=== PATIENT | male | born 1980 | race Caucasian/White ===

== ENCOUNTER 2018-01-13 12:55 | Emergency (ER) | payer BC ==
[~2018-01-13] VITALS: Ht 175.3 cm; Wt 72.6 kg
[2018-01-13] MEDS: chlordiazePOXIDE HCL 25 MG CAP PO ONE (14:20)
[2018-01-13 14:45] LABS: Basophils # (auto) 0 uL; Basophils % (auto) 0.4 % (0.0-2.0); Eosinophils # (auto) 0 uL; Eosinophils % (auto) 0.4 % (0.0-7.0); Hematocrit 47.4 % (41.0-53.0); Lymphocytes # (auto) 1.8 uL; Lymphocytes % (auto) 19.3 % (10.0-50.0); Mean Corpuscular Hemoglobin 32.3 pg (28.0-32.0); Mean Corpuscular Hgb Conc. 33.8 g/dL (32.0-36.0); Mean Corpuscular Volume 95.6 fL (80.0-100.0); Monocytes # (auto) 0.7 uL; Monocytes % (auto) 8.1 % (0.0-12.0); Neutrophils # (auto) 6.5 uL; Neutrophils % (auto) 71.8 % (37.0-80.0); Nucleated Red Blood Cells % 0.1 %; Platelet Count (auto) 226 10^3/uL (140-450); Red Blood Cells 4.95 10^6/uL (4.5-5.90); Red Cell Distribution Width 13.3 % (11.8-14.3); White Blood Cell 9.1 10^3/uL (4.4-10.8)
[2018-01-13 15:03] LABS: Alanine Aminotransferase 39 U/L (16-61); Anion Gap 10 (5-15); Aspartate Aminotransferase 34 U/L (15-37); BUN/Creatinine Ratio 6.9; Blood Alcohol < 3.0 mg/dL (0-5); Blood Urea Nitrogen 7 mg/dL (7-18); Carbon Dioxide 26 mmol/L (21-32); Chloride 107 mmol/L (98-107); GFR African American 106 mL/min; GFR Non-African American 87 mL/min; Glucose 93 mg/dL (74-106); Potassium 4.1 mmol/L (3.5-5.1); Sodium 143 mmol/L (136-145)
[2018-01-13 15:05] LABS: Alkaline Phosphatase 71 U/L (45-117); Bilirubin, Total 0.3 mg/dL (0.2-1.0); Total Protein 7.5 g/dL (6.4-8.2)
[2018-01-13 15:22] LABS: Urine WBC None Seen /hpf (0 - 3)
[2018-01-13 15:43] LABS: Urine Bacteria NONE SEEN /hpf (None Seen); Urine Blood Negative /uL (Negative); Urine Specific Gravity 1.007 (1.001-1.035)
[2018-01-13 16:14] LABS: Amphetamine Screen, Urine NEGATIVE (NEGATIVE); Barbiturate Scree,Urine NEGATIVE (NEGATIVE); Benzodiazephine Screen, Urine NEGATIVE (NEGATIVE); Cannabinoid Screen, Urine NEGATIVE (NEGATIVE); Cocaine Screen, Urine NEGATIVE (NEGATIVE); Opiate Scree,Urine NEGATIVE (NEGATIVE); Phencyclidine Screen, Urine NEGATIVE (NEGATIVE)
[2018-01-13 16:29] VITALS: BP 140/86
== END 2018-01-13 16:31 | disposition home or self-care (01) ==
LOC: ER 12:55
DX: F10.230 Alcohol dependence with withdrawal, uncomplicated (principal); F17.210 Nicotine dependence, cigarettes, uncomplicated
CPT/HCPCS: 36415; 80053; 80307; 80320; 80329; 81001; 85025; 93005

== ENCOUNTER → 2019-12-22 | Day surgery (SDC) | payer MEDICAID ==
[~2019-12-22] MED LIST: BUPIVACAINE 0.25% INJ 50ML VIAL ONE; CEPH-37 PO; DOCU-94 PO; HEPARIN SODIUM (PORCINE) 5000 UNITS/ML 1ML VIAL ONE; HYDR-392 PO; LIDOCAINE W/ EPINEPHRINE 1% 20ML VIAL ONE; MEPERIDINE HCL (25 MG/ML) 1ML VIAL ONE; MIDAZOLAM HCL 1MG/1ML-2 ML VIAL ONE; ONDANSETRON HCL 4 MG/2 ML VIAL ONE; PROPOFOL 10 MG/ML 20 ML IV ONE; ROCURONIUM 10MG/ML 10ML VIAL IV ONE; SODIUM CHLORIDE LOCK 10 ML ONE; SUCCINYLCHOLINE CHLORIDE 20 MG/ML 10ML VIAL IV ONE; ceFAZolin 1GM VL IV ONE; ceFAZolin 1GM/50ML 100 ML IV ONE; fentaNYL CITRATE 100 MCG/2 ML VL ONE
[2019-12-22 10:41] VITALS: BP 133/76
== END | disposition home or self-care (01) ==
LOC: SUR 08:11
PROVIDERS: ATTEND Surgery
DX: D17.0 Benign lipomatous neoplasm of skin and subcutaneous tissue of head, face and neck (principal); Z98.890 Other specified postprocedural states
CPT/HCPCS: 21552; 82962; 88304; J0330; J0690; J1644; J2175; J2250; J2405; J2704; J3010; J3490

== ENCOUNTER 2020-02-02 08:08 | Day surgery (SDC) | payer MEDICAID ==
[~2020-02-02] VITALS: Ht 175.3 cm; Wt 83.9 kg
[2020-02-02] MEDS ORDERED: HEPARIN SODIUM (PORCINE) 5000 UNITS/ML 1ML VIAL SC ONE (08:52)
[2020-02-02] MEDS ORDERED: fentaNYL CITRATE 100 MCG/2 ML VL ONE (10:07)
[2020-02-02] MEDS ORDERED: MEPERIDINE HCL (25 MG/ML) 1ML VIAL ONE (10:07)
[2020-02-02] MEDS ORDERED: SODIUM CHLORIDE LOCK 10 ML ONE (10:08)
[2020-02-02] MEDS ORDERED: PROPOFOL 10 MG/ML 20 ML IV ONE (10:08)
[2020-02-02] MEDS ORDERED: ONDANSETRON HCL 4 MG/2 ML VIAL ONE (10:08)
[2020-02-02] MEDS ORDERED: MIDAZOLAM HCL 1MG/1ML-2 ML VIAL ONE (10:08)
[2020-02-02] MEDS ORDERED: BUPIVACAINE 0.25% INJ 50ML VIAL ONE (10:33)
[2020-02-02] MEDS ORDERED: LIDOCAINE W/ EPINEPHRINE 1 % INJ 30ML ONE (10:33)
[2020-02-02] MEDS ORDERED: METOCLOPRAMIDE HCL 5MG/ml INJ 2ml VIAL IV PRN (10:45)
[2020-02-02] MEDS ORDERED: KETOROLAC TROMETH 30 MG/ML 1ML VIAL IV ONE (10:45)
[2020-02-02] MEDS ORDERED: fentaNYL CITRATE 100 MCG/2 ML VL IV PRN (10:45)
[2020-02-02] MEDS ORDERED: MORPHINE SULFATE 4 MG/ML SYR/VIAL IV PRN (10:45)
[2020-02-02] MEDS ORDERED: HYDROmorphone HCL 2 MG/ML VL IV PRN (10:45)
[2020-02-02] MEDS ORDERED: HYDR-4833 GT (11:30)
[2020-02-02 12:03] VITALS: BP 112/70
== END 2020-02-02 12:15 | disposition home or self-care (01) ==
LOC: SUR 08:08
PROVIDERS: ATTEND Surgery
DX: R19.09 Other intra-abdominal and pelvic swelling, mass and lump (principal); D17.1 Benign lipomatous neoplasm of skin and subcutaneous tissue of trunk; I26.99 Other pulmonary embolism without acute cor pulmonale; Z86.718 Personal history of other venous thrombosis and embolism; Z68.28 Body mass index [BMI] 28.0-28.9, adult; Z98.890 Other specified postprocedural states; Z79.899 Other long term (current) drug therapy; Z11.59 Encounter for screening for other viral diseases
CPT/HCPCS: 22902; 88302; J1644; J2001; J2175; J2250; J2405; J2704; J3010; J3490; U0003

== ENCOUNTER 2020-03-06 12:55 | Emergency (ER) | payer MEDICAID ==
[~2020-03-06] VITALS: Ht 175.3 cm; Wt 83.9 kg
[~2020-03-06 12:55] MED LIST changes: -BUPIVACAINE 0.25% INJ 50ML VIAL ONE; -CEPH-37 PO; -DOCU-94 PO; -HEPARIN SODIUM (PORCINE) 5000 UNITS/ML 1ML VIAL ONE; -HYDR-392 PO; +HYDR-4833 GT; -LIDOCAINE W/ EPINEPHRINE 1% 20ML VIAL ONE; -MEPERIDINE HCL (25 MG/ML) 1ML VIAL ONE; -MIDAZOLAM HCL 1MG/1ML-2 ML VIAL ONE; -ONDANSETRON HCL 4 MG/2 ML VIAL ONE; -PROPOFOL 10 MG/ML 20 ML IV ONE; -ROCURONIUM 10MG/ML 10ML VIAL IV ONE; -SODIUM CHLORIDE LOCK 10 ML ONE; -SUCCINYLCHOLINE CHLORIDE 20 MG/ML 10ML VIAL IV ONE; -ceFAZolin 1GM VL IV ONE; -ceFAZolin 1GM/50ML 100 ML IV ONE; -fentaNYL CITRATE 100 MCG/2 ML VL ONE
[2020-03-06 15:36] VITALS: BP 129/88
[2020-03-06] MEDS ORDERED: IBUPROFEN 800 MG TAB PO ONE (16:15)
[2020-03-06] MEDS ORDERED: METHOCARBAMOL 500 MG TAB PO ONE (16:15)
[2020-03-06] MEDS ORDERED: LIDOCAINE 1% HCL (LOCAL ANESTH.) INJ 20ML MDV ONE (16:49)
== END 2020-03-06 17:54 | disposition home or self-care (01) ==
LOC: ER 12:55
DX: S01.81XA Laceration without foreign body of other part of head, initial encounter (principal); F17.210 Nicotine dependence, cigarettes, uncomplicated; V29.9XXA Motorcycle rider (driver) (passenger) injured in unspecified traffic accident, initial encounter; Y93.I9 Activity, other involving external motion; Y92.89 Other specified places as the place of occurrence of the external cause; Y99.8 Other external cause status
CPT/HCPCS: 12013; 70486; 73030; 99284; J2001

== ENCOUNTER → 2025-04-28 | Day surgery (SDC) | payer MEDICAID ==
[~2025-04-28] VITALS: Ht 172.7 cm; Wt 84.4 kg
[~2025-04-28] MED LIST changes: +BUPIVACAINE 0.25% INJ 50ML VIAL ONE; +CRAN125T PO; -HYDR-4833 GT; +KETOROLAC TROMETH 30 MG/ML 1ML VIAL ONE; +MILK140C PO; +MULT-1018 PO; +OMEG100062 PO; +OMEG1400 PO; +ROPIVACAINE 0.5% (5MG/ML) 20ML AMPULE IJ ONE; +TRANEXAMIC ACID 20 ML ONE; +VANCOMYCIN HCL 1000 MG VL ONE; +[UNRECOGNIZED DRUG - CODE] PO
== END | disposition home or self-care (01) ==
LOC: SUR 08:27
PROVIDERS: ATTEND Orthopaedic Surgery
DX: M16.11 Unilateral primary osteoarthritis, right hip (principal); Z53.8 Procedure and treatment not carried out for other reasons; M87.051 Idiopathic aseptic necrosis of right femur; M16.7 Other unilateral secondary osteoarthritis of hip
CPT/HCPCS: 86850; 86900; 86901; A4565; J1885; J3490

== ENCOUNTER 2025-05-04 09:30 | Inpatient (IN) | payer MEDICAID ==
[2025-04-30 08:45] LABS: Hematocrit 44.9 % (41.0-53.0); Hemoglobin 15.1 g/dL (13.5-17.5); Mean Corpuscular Hemoglobin 27.6 pg (28.0-32.0); Mean Corpuscular Volume 81.7 fL (80.0-100.0); Nucleated Red Blood Cells % 0.1 %
[2025-04-30 08:50] LABS: Urine Protein, UAD Negative (Negative)
[2025-04-30 09:06] LABS: INR 1.02 (0.9-1.15); Partial Thromboplastin Time 26.9 SEC (24.5-34.5); Prothrombin Time 10.8 sec (9.3-11.8)
[2025-04-30 09:07] LABS: Alanine Aminotransferase 25 U/L (7-40); Albumin 4.3 g/dL (3.2-4.8); Alkaline Phosphatase 76 U/L (46-116); Anion Gap 10 (5-15); BUN/Creatinine Ratio 15.9 (10.0-20.0); Bilirubin, Total 0.7 mg/dL (0.2-1.0); Blood Urea Nitrogen 20 mg/dL (9-23); Calcium 9.4 mg/dL (8.7-10.4); Carbon Dioxide 27 mmol/L (20-31); Chloride 107 mmol/L (98-107); Glucose 88 mg/dL (74-106); Potassium 4.1 mmol/L (3.5-5.1); Sodium 144 mmol/L (136-145); Total Protein 6.7 g/dL (5.7-8.2)
[~2025-05-04] VITALS: Ht 172.7 cm; Wt 57.0 kg
[~2025-05-04 09:30] MED LIST changes: -BUPIVACAINE 0.25% INJ 50ML VIAL ONE; -KETOROLAC TROMETH 30 MG/ML 1ML VIAL ONE; -ROPIVACAINE 0.5% (5MG/ML) 20ML AMPULE IJ ONE; -TRANEXAMIC ACID 20 ML ONE; -VANCOMYCIN HCL 1000 MG VL ONE
[2025-05-04] MEDS ORDERED: GLYCOPYRROLATE 0.2 MG/ML 1ML VIAL ONE (10:14)
[2025-05-04] MEDS ORDERED: PROPOFOL 10 MG/ML 20 ML IV ONE ×3 (10:14→12:24)
[2025-05-04] MEDS ORDERED: ONDANSETRON HCL 4 MG/2 ML VIAL ONE (10:14)
[2025-05-04] MEDS ORDERED: LIDOCAINE 1% INJ PF 5ML AMP ONE (10:14)
[2025-05-04] MEDS ORDERED: KETOROLAC TROMETH 30 MG/ML 1ML VIAL ONE (10:14)
[2025-05-04] MEDS: CELECOXIB 100 MG CAP ONE (10:19)
[2025-05-04] MEDS: ACETAMINOPHEN IV 100 ML IV ONE (10:19)
[2025-05-04] MEDS: GABAPENTIN 300 MG CAP ONE (10:19)
[2025-05-04] MEDS: GABAPENTIN 300 MG CAP PO ONE (10:30)
[2025-05-04] MEDS: ACETAMINOPHEN IV 1000 MG/100ML (10MG/ML) IV ONE (10:30)
[2025-05-04] MEDS: CELECOXIB 100 MG CAP PO ONE (10:30)
[2025-05-04] MEDS: BUPIVACAINE 0.25% INJ 50ML VIAL ONE (10:33)
[2025-05-04] MEDS ORDERED: BUPIVACAINE/DEXTROSE MPF 0.75% 2 ML AMP IT ONE (10:34)
[2025-05-04] MEDS: ceFAZolin 2 GM/D5W50ml 50 ML IV ONE (10:45)
[2025-05-04] MEDS: CEFEPIME 1GM/50ML 50 ML IV ONE (10:45)
[2025-05-04] MEDS: VANCOMYCIN HCL 1000 MG VL ONE (11:11)
[2025-05-04] MEDS: TRANEXAMIC ACID 20 ML ONE (11:11)
--- NOTE | 2025-05-04 12:39 | DVHOP2 ---
Operative Report - 2 Report Details Date: 05/04/25 Preop Diagnosis: Right hip avascular necrosis Postop Diagnosis: Right hip avascular necrosis Surgeon: Malina Morrison MD Chairman: Magdy IQBAL Anesthesiologist: Evaristo Jones CRNA Anesthesia: Regional Drains: Miki closed wound suction Implant: DonJoy nebulous stem size six, minus four neck length with 36 ceramic head, 52 G7 acetabular shell Kayleen with a flat polyethylene liner Consent: The patient was informed of the risks and benefits of the procedure. These include but are not limited to complications of anesthesia, postoperative infection, incomplete relief of symptoms, recurrence of symptoms, damage to blood vessels, nerves and tendons, deep venous thrombosis, pulmonary embolism and possible need for repeat surgery in the future. Complications: None Estimated Blood Loss: 150 cc Fluids: See anesthesia record Findings: Avascular necrosis right hip with cartilaginous depressions and fissures in the femoral head Indications for Surgery: Right hip pain and functional impairment secondary to avascular necrosis and failed nonoperative management Name of Procedure Performed Right total hip arthroplasty Procedure Details Procedure Details: The patient was brought to the operating room and given spinal anesthetic with adequate analgesia obtained. The patient was positioned lateral decubitus with the operative side up, stabilized with hip positioners. Axillary roll applied and lower extremities well-padded. Preop patient received IV Ancef, cefepime and IV tranexamic acid. Surgical timeout was performed verifying patient, laterality and procedure. The hip and lower extremity were prepped and draped in sterile fashion. Incision was made over the greater trochanter. Subcutaneous dissection and hemostasis were performed with Bovie and aqua mantis. I identified the fascia which was incised with Bovie and Charnley retractor inserted. I identified the gluteus medius that was split at the junction of its anterior and middle thirds with Bovie then incised off the anterior greater trochanter. I incised the anterior gluteus minimus which was elevated off the capsule. I elevated the reflected head of the rectus. I then performed anterior capsulectomy with Bovie. I extended capsular incision posterior medially and superior laterally. The head was dislocated. Femoral neck cut was made with saw and head removed. Head diameter was calipered on the back table. I adjusted retractors to expose the acetabulum. I circumfere ntially removed labral tissue with Bovie. I removed foveal tissue with Bovie, curette and rongeur. I then began reaming sequentially paying attention to inclination and version as I went. I trialed which was stable so acetabular implant was brought into the field and tapped into the acetabulum with good fixation achieved. I inserted the cap at the insertion hole. I then brought up the flat liner which was spun to make sure there was no soft tissue entrapment then tapped in and stability verified. I then brought my attention to the proximal femur. The leg was placed in the sterile bag anteriorly. I cleaned up soft tissue at the greater trochanter shoulder with Bovie. I then used a rongeur to clip the lateral neck. I then used a box osteotome, canal finder and lateralizing rasp. I sequentially broached to size six. I trialed with a [0 and minus four] neck length and [36] head which was stable. Intraoperative AP pelvis x-ray was obtained to verify length, offset and implant size. The hip was dislocated. Neck and head trial removed. Broach was removed. I tapped in the femoral implant with good fixation achieved. I again trialed with a minus four and 0 neck length and decided on the minus four based on stability and x- ray findings. I cleaned and dried the Zimmer taper and tapped on the ceramic head. The hip was again reduced and tested for stability which was good. I irrigated with biosurge. I placed a 2 grams of vancomycin in the deep and superficial wound. I repaired the minimus and medius to the anterior greater trochanter with #[5] FiberWire in running fashion . I oversewed the repair with 0 Vicryl. I repaired the fascia with #1 Ethibond interrupted [id number]. Deep subcutaneous tissue was closed with 0 Vicryl. Superficial subcutaneous tissue was closed with 2-0 Vicryl. The skin was closed with eli. I then applied the Miki closed wound suction. Patient tolerated the procedure well and was brought to the recovery room in stable condition. Condition Stable Disposition Still a Patient MALINA MORRISON MD May 04, 2025 12:39
[2025-05-04] MEDS ORDERED: ONDANSETRON HCL 4 MG/2 ML VIAL IV PRN ×2 (12:45→13:00)
[2025-05-04] MEDS ORDERED: HYDROmorphone HCL 2 MG/ML VL/or syr IV PRN (13:00)
[2025-05-04] MEDS ORDERED: FLUMAZENIL 0.1 MG/ML INJ 10ML MDV IV PRN (13:00)
[2025-05-04] MEDS ORDERED: hydrALAZINE HCL 20 MG/ML VL IV PRN (13:00)
[2025-05-04] MEDS ORDERED: fentaNYL CITRATE 100 MCG/2 ML VL IV PRN (13:00)
[2025-05-04] MEDS ORDERED: NALOXONE HCL 0.4 MG/ML VIAL IV PRN (13:00)
--- NOTE | 2025-05-04 13:15 | DVH ---
CLINICAL INDICATION: INTRA-OP TECHNIQUE: 1 radiographic views of the right hip were obtained. Comparison: XY PELVIS AP on DOS: 05/04/25, XR HIP LEFT 2-3 VIEW on DOS: 04/17/25, XR PELVIS 1-2 VIEW on DOS: 04/17/25, MR HIP LEFT WO/W on DOS: 03/27/25, MR HIP RIGHT WO/W on DOS: 03/27/25 FINDINGS/IMPRESSION: Postsurgical changes from right hip arthroplasty.
--- NOTE | 2025-05-04 13:27 | DVH ---
EXAM: XY PELVIS AP CLINICAL INDICATION: postop TECHNIQUE: XY PELVIS AP Comparison: XR PELVIS 1-2 VIEW on DOS: 04/17/25, MR PELVIS WO/W on DOS: 01/24/24 FINDINGS/IMPRESSION: Right total hip arthroplasty. Surgical skin eli. Anatomic alignment.
[2025-05-04 13:38] VITALS: PULSE 84; RESP 14; O2SAT 97
[2025-05-04] MEDS: ceFAZolin 2 GM/D5W50ml 50 ML IV SCH (15:20)
[2025-05-04 15:58] VITALS: BP 120/72; PULSE 61; RESP 18; TEMP 98.3; O2SAT 96; O2SAT 98
[2025-05-04] MEDS: SODIUM CHLORIDE 0.9% 1,000 ML IV SCH (16:00)
[2025-05-04 17:00] VITALS: BP 120/72; PULSE 91; RESP 17; TEMP 98.3; O2SAT 96
[2025-05-04] MEDS: KETOROLAC TROMETH 30 MG/ML 1ML VIAL IV SCH (18:26)
[2025-05-04] MEDS: ACETAMINOPHEN 325 MG TAB PO SCH (18:26)
[2025-05-04 20:00] VITALS: PULSE 84; RESP 18; O2SAT 96
[2025-05-04 20:45] VITALS: BP 119/81; PULSE 84; RESP 18; TEMP 98.1; O2SAT 96
[2025-05-04] MEDS: PREGABALIN 25 MG CAP PO SCH (21:14)
[2025-05-05 00:46] VITALS: BP 118/77; PULSE 80; RESP 17; TEMP 98; O2SAT 97
[2025-05-05 05:00] VITALS: BP 108/66; PULSE 84; RESP 17; TEMP 98; O2SAT 99
[2025-05-05 07:27] LABS: Hematocrit 35.2 % (41.0-53.0); Hemoglobin 12.2 g/dL (13.5-17.5); Mean Corpuscular Hemoglobin 28.4 pg (28.0-32.0); Mean Corpuscular Volume 81.9 fL (80.0-100.0); Nucleated Red Blood Cells % 0.0 %
[2025-05-05 07:34] LABS: Anion Gap 10 (5-15); Carbon Dioxide 25 mmol/L (20-31); Chloride 106 mmol/L (98-107); Potassium 4.3 mmol/L (3.5-5.1); Sodium 141 mmol/L (136-145)
[2025-05-05 07:40] LABS: BUN/Creatinine Ratio 12.5 (10.0-20.0); Blood Urea Nitrogen 16 mg/dL (9-23)
[2025-05-05 07:41] LABS: Calcium 8.5 mg/dL (8.7-10.4); Glucose 163 mg/dL (74-106)
--- NOTE | 2025-05-05 08:41 | DVHDS2 ---
Discharge Summary Date of Admission May 04, 2025 at 11:28 Date of Discharge: May 05, 2025 Labs/Diagnostic Data: Laboratory Results Test 05/05/25 04:48 04/30/25 08:31 White Blood Count 10.5 10^3/uL (4.4-10.8) Red Blood Count 4.30 10^6/uL (4.5-5.90) Hemoglobin 12.2 g/dL (13.5-17.5) Hematocrit 35.2 % (41.0-53.0) Mean Corpuscular Volume 81.9 fL (80.0-100.0) Mean Corpuscular Hemoglobin 28.4 pg (28.0-32.0) Mean Corpuscular Hemoglobin Concent 34.7 g/dL (32.0-36.0) Red Cell Distribution Width 13.2 % (11.8-14.3) Platelet Count 201 10^3/uL (140-450) Mean Platelet Volume 7.4 fL (6.9-10.8) Neutrophils (%) (Auto) 78.0 % (37.0-80.0) Lymphocytes (%) (Auto) 11.0 % (10.0-50.0) Monocytes (%) (Auto) 10.9 % (0.0-12.0) Eosinophils (%) (Auto) 0.0 % (0.0-7.0) Basophils (%) (Auto) 0.1 % (0.0-2.0) Neutrophils # (Auto) 8.2 10 ^3/uL (1.6-8.6) Lymphocytes # (Auto) 1.2 10 ^3/uL (0.4-5.4) Monocytes # (Auto) 1.1 10 ^3/uL (0-1.3) Eosinophils # (Auto) 0 10 ^3/uL (0-0.8) Basophils # (Auto) 0 10 ^3/uL (0-0.2) Nucleated Red Blood Cells 0.0 % Sodium Level 141 mmol/L (136-145) Potassium Level 4.3 mmol/L (3.5-5.1) Chloride Level 106 mmol/L (98-107) Carbon Dioxide Level 25 mmol/L (20-31) Anion Gap 10 (5-15) Blood Urea Nitrogen 16 mg/dL (9-23) Creatinine 1.28 mg/dL (0.700-1.30) Glomerular Filtration Rate Calc 70 mL/min (>90) BUN/Creatinine Ratio 12.5 (10.0-20.0) Serum Glucose 163 mg/dL (74-106) Calcium Level 8.5 mg/dL (8.7-10.4) Prothrombin Time 10.8 sec (9.3-11.8) Prothrombin Time INR 1.02 (0.9-1.15) Activated Partial Thromboplast Time 26.9 SEC (24.5-34.5) Urine Color Light-yellow (Yellow) Urine Clarity Clear (Clear) Urine pH 5.5 (5.0-9.0) Urine Specific Clarissa 1.020 (1.001-1.035) Urine Protein Negative (Negative) Urine Ketones Negative (Negative) Urine Blood Trace /uL (Negative) Urine Nitrite Negative (Negative) Urine Bilirubin Negative (Negative) Urine Urobilinogen Normal mg/dL (Negative) Urine Leukocyte Esterase Negative /uL (Negative) Urine RBC 1 /hpf (0 - 3) Urine Microscopic WBC 1 /HPF (0-3) Urine Squamous Epithelial Cells None seen /hpf (<5) Urine Bacteria None seen /hpf (None Seen) Urine Glucose Normal mg/dL (Normal) Total Bilirubin 0.7 mg/dL (0.2-1.0) Aspartate Amino Transferase (AST) 17 U/L (13-40) Alanine Aminotransferase (ALT) 25 U/L (7-40) Alkaline Phosphatase 76 U/L (46-116) Total Protein 6.7 g/dL (5.7-8.2) Albumin 4.3 g/dL (3.2-4.8) Other Laboratory Tests 05/05/25 04:48 Brief Hx & Hospital Course: Patient was brought to the hospital yesterday to undergo a right total hip arthroplasty. He tolerated the procedure well without complications and was kept overnight for postoperative observation. He has remained medically stable denying any overnight events and reports some postoperative hip pain that is being well managed with the help of pain medication. Patient reports that he was able to get up and walk with the help of physical therapy and his walker yesterday and was able to get down the garcia around the nurses station and back to his room with some postoperative pain but felt stable. Patient was otherwise feeling well denying any other complaints or concerns during my evaluation and would like to go home. Condition at Discharge: Stable Final Diagnosis/Problems List Right hip avascular necrosis Discharge Disposition: Home Discharge Instruct/Medications Diet: Regular Activity: See Comment Activity comment: Patient to remain weight-bearing as tolerated with the assistance of a walker Follow Up/Referral: Patient instructed to follow up with our office in 10-14 days for his 1st postoperative evaluation Medications: Rx sent via our outpatient EMR system Scheduled Multiple Vitamin (Multivitamins), 1 TAB PO DAILY, (Reported) Miscellaneous Medications Cranberry Extract (Cranberry), 125 MG PO, (Reported) [place]-3 Fatty Acids ([place]-3), 1,400 MG PO, (Reported) [place]-3 Fatty Acids (Fish Oil), 1,000 MG PO, (Reported) Protein (Wellness Protein Shake), 21 GM PO, (Reported) Silybum Marianum (Milk Thistle), 140 MG PO, (Reported) Discharge Statement: "Patient was advised to return to the ER or call 911 if any headaches, dizziness, shortness of breath, chest pain, abdominal pain, bleeding, fevers, or worsening of medical condition. Patient was counseled about treatment plan, medications, possible side effects, patientverbalized understanding. All questions were answered to the best of my ability. This discharge took greater then 30 minutes in planning, reviewing documentation, counseling the patient, and discussing with other team members." ASSESSMENT ASSESSMENT Assessment Right hip avascular necrosis JOHN MACKEY May 05, 2025 08:40
--- NOTE | 2025-05-05 08:42 | DVHPN2 ---
Progress Note - Dictate Date Seen: May 05, 2025 Medical Necessity Reason Pt with a Central, PICC or Fol: No Subjective Patient was lying comfortably in bed during my evaluation reports some postoperative hip pain that is being well managed with the help of pain medication. Patient reports that he was able to get up and walk with the help of physical therapy and his walker yesterday and was able to get down the garcia around the nurses station and back to his room with some postoperative hip pain. Patient is otherwise feeling stable denying any other complaints or concerns during today's evaluation and is ready to go home. vital signs Vital Sign Date Time Temp Pulse Resp B/P (MAP) Pulse Ox O2 Delivery O2 Flow Rate FiO2 05/05/25 05:56 98.0 05/05/25 05:00 84 17 108/66 (80) 99 05/04/25 20:00 Room Air* 0 21 Total Intake and Output 05/04/25 05/04/25 05/05/25 15:00 23:00 07:00 Intake Total 220 ml 450 ml 1825 ml Output Total 2150 ml 800 ml Balance 220 ml -1700 ml 1025 ml medications Current Medications Medications Dose Ordered Sig/Rob Route Start Time Stop Time Status Last Admin Dose Admin Pregabalin 50 mg BID PO 05/04/25 22:00 Apixaban 2.5 mg BID PO 05/05/25 10:00 06/09/25 09:59 Sodium Chloride 1,000 ml @ 125 mls/hr Q8H IV 05/04/25 11:30 05/05/25 03:13 125 MLS/HR Acetaminophen 650 mg Q6HP PO 05/04/25 18:00 05/05/25 05:56 650 MG Ketorolac Tromethamine 15 mg Q6HR IV 05/04/25 18:00 05/09/25 17:59 05/05/25 05:55 15 MG Ondansetron HCl 4 mg Q4HP PRN IV 05/04/25 12:45 Oxycodone HCl 5 mg Q4HP PRN PO 05/04/25 11:30 05/04/25 16:48 5 MG Oxycodone HCl 10 mg Q4HP PRN PO 05/04/25 11:30 05/05/25 07:50 10 MG Oxycodone HCl 10 mg ONCE PRN PO 05/04/25 13:00 objective A&O x4 in no acute distress Hip range of motion grossly intact with pain on movement Miki dressing clean, dry, intact, and maintaining suction No distal edema or calf tenderness to palpation Neurovascularly intact with cap refill less than 2 seconds laboratory and microbiology Laboratory Tests 05/05/25 04:48 Test 05/05/25 04:48 Range/Units Serum Glucose 163 H 74-106 mg/dL Assessment/Plan Patient to be discharged home and advised to remain weight-bearing as tolerated with the assistance of a walker. I instructed the patient to follow up with our office in 10-14 days for his 1st postoperative evaluation and to maintain his dressings clean, dry, intact, and maintaining suction. I also advised the patient to follow up with our office in 10-14 days for his 1st postoperative evaluation. Rx sent via our outpatient EMR system. Patient understood and agreed. Plan discussed with: Patient JOHN MACKEY May 05, 2025 08:42
[2025-05-05 09:00] VITALS: BP 119/72; PULSE 56; RESP 17; TEMP 98.2; O2SAT 97
[2025-05-05] MEDS: APIXABAN 2.5 MG TAB PO SCH (09:36)
[2025-05-05 10:02] VITALS: TEMP 36.8
== END 2025-05-05 10:41 | disposition home or self-care (01) | DRG 324 ==
LOC: SUR 09:30 → OVERFLOW 11:28 → CENTRAL 15:30
PROVIDERS: ADMIT Orthopaedic Surgery; ATTEND Orthopaedic Surgery
PROC: 0SR903Z Replacement of Right Hip Joint with Ceramic Synthetic Substitute, Open Approach (ICD-10-PCS; principal; 2025-05-04 10:44)
DX: M87.851 Other osteonecrosis, right femur (principal)
CPT/HCPCS: 36415; 72170; 73501; 80048; 80053; 81001; 85025; 85610; 85730; 86850; 86900; 86901; 97110; 97116; 97163; G0378; J0131; J0169; J1100; J1885; J2405; J2704; J3490